=== PATIENT | female | born 1965 | race Caucasian/White ===

== ENCOUNTER → 2017-09-18 15:02 | Emergency (ER) | payer OTHER ==
[~2017-09-18 15:02] MED LIST: Dexamethasone IV* 4 MG/ML 1 ML (4 MG) IV SLOW PU ONE; Ketorolac INJ* 30 MG/ML 1 ML VIAL IV PUSH ONE; Lidocaine PATCH 5%* 1 PATCH TRANSDERM ONE; Morphine INJ* 2 MG/ML 1 ML CARPUJECT IV ONE; Morphine INJ* 2 MG/ML 1 ML SYRINGE (TWO MG - NEW SYRINGE VERSION) ONE; Morphine INJ* 4 MG/ML 1 ML CARPUJECT IV ONE; Ondansetron INJ* 2 MG/ML VIAL IV ONE; Orphenadrine Citrate IV* 30 MG/ML 2 ML VIAL IV ONE; oxyCODONE/Acetamin 5/325 MG* TAB PO ONE
--- NOTE | 2017-09-18 18:40 | ED ---
Back Pain - HPI Summary HPI Summary: 52F presents with back pain for three weeks. She states she was sitting in a chair when it started and that she got up and felt pain on left side of back. She states that sometimes it goes down her left leg and she gets tingling in her feet. She denies any loss of bowel or bladder or saddle anaesthesia. She denies any fever. She was seen here on 08/[address] that showed only arthritis. She denies any hematuria, urgency, frequency or dysuria. She did take medication for a uti at that time but did not have a uti. She denies any history of kidney stones. She denies any new injury. The pain is in the same location this entire month the intensity has just increased. She has been using flexeril, naproxen and Tylenol for the pain without relief. It is more comfortable if she stands. She is following up with her primary this week to start PT. - History of Current Complaint Chief Complaint: EDBackInjuryPain Stated Complaint: FLANK PAIN Time Seen by Provider: 09/18/17 17:44 Hx Last Menstrual Period: currently menstruating Pain Intensity: 8 - Allergies/Home Medications Allergies/Adverse Reactions: Allergies Allergy/AdvReac Type Severity Reaction Status Date / Time No Known Allergies Allergy Verified 09/18/17 15:04 PMH/Surg Hx/FS Hx/Imm Hx Endocrine/Hematology History: Denies: Hx Diabetes Cardiovascular History: Denies: Hx Hypertension Musculoskeletal History: Reports: Hx Back Problems - Surgical History Surgery Procedure, Year, and Place: cyst removed from right ovary in s - Immunization History Date of Tetanus Vaccine: unk Date of Influenza Vaccine: none Infectious Disease History: No Infectious Disease History: Denies: History Other Infectious Disease, Traveled Outside the [place] in Last 30 Days - Family History Known Family History: Negative: Diabetes - Social History Alcohol Use: Weekly Substance Use Type: Reports: None Smoking Status (MU): Never Smoked Tobacco Review of Systems Negative: Fever Negative: Chest Pain Negative: Shortness Of Breath Positive: Myalgia - back pain All Other Systems Reviewed And Are Negative: Yes Physical Exam Triage Information Reviewed: Yes Vital Signs On Initial Exam: Initial Vitals Temp Pulse Resp BP Pulse Ox 98.6 F 98 16 144/108 99 09/18/17 15:04 09/18/17 15:04 09/18/17 15:04 09/18/17 15:04 09/18/17 15:04 Vital Signs Reviewed: Yes Appearance: Positive: Pain Distress Skin: Positive: Warm, Dry Head/Face: Positive: Normal Head/Face Inspection Eyes: Positive: Normal, Conjunctiva Clear Respiratory/Lung Sounds: Positive: Clear to Auscultation, Breath Sounds Present Cardiovascular: Positive: Normal, RRR Abdomen Description: Positive: Nontender, Soft Bowel Sounds: Positive: Present Musculoskeletal: Positive: Limited @ - back, Other - tenderness on left side of back, pos SLR leg, good pulses Neurological: Positive: Reflexes Intact - patella, Normal Gait Psychiatric: Positive: Normal - Neema Coma Scale Coma Scale Total: 15 Diagnostics - Vital Signs Vital Signs Temp Pulse Resp BP Pulse Ox 09/18/17 18:16 20 09/18/17 16:02 24 09/18/17 15:04 98.6 F 98 16 144/108 99 - Laboratory Lab Statement: Any lab studies that have been ordered have been reviewed, and results considered in the medical decision making process. Re-Evaluation - Re-Evaluation First Eval Re-Evaluation Time: 19:13 Change: Improved Comment: feeling better, able to lay down in bed Back Pain Course/Dx - Course Course Of Treatment: 52F presents with back pain for three weeks. She states she was sitting in a chair when it started and that she got up and felt pain on left side of back. She states that sometimes it goes down her left leg and she gets tingling in her feet. She denies any loss of bowel or bladder or saddle anaesthesia. She denies any fever. She was seen here on 08/[address] that showed only arthritis. She denies any hematuria, urgency, frequency or dysuria. She did take medication for a uti at that time but did not have a uti. She denies any history of kidney stones. She denies any new injury. The pain is in the same location this entire month the intensity has just increased. She has been using flexeril, naproxen and Tylenol for the pain without relief. It is more comfortable if she stands. She is following up with her primary this week to start PT. on exam tenderness left lower back, pos SLR. able to ambulate. in course of ED was given steriod, toradol, norflex, and lidocaine patch. patient was in visible pain distress and required 6 mg total of morphine. due to this wrote a short script for narcoctic. gave lidocaine patch and steriod. told to follow up with primary. patient understand and agrees with plan. - Diagnoses Differential Diagnosis/HQI/PQRI: Positive: Fracture, Strain, Sprain Provider Diagnoses: Back pain Discharge - Discharge Plan Condition: Good Disposition: HOME Prescriptions: Lidocaine PATCH 5%* [Lidoderm 5% Patch*] 1 patch TRANSDERM DAILY #7 patch Methylprednisolone [Medrol Dosepak 4 MG*] 4 mg PO .SEE DENNIS INSTRUCTION #1 packet oxyCODONE/Acetamin 5/325 MG* [Percocet 5/325 TAB*] 1 tab PO Q6H PRN #12 tab MDD 4 PRN Reason: Pain Patient Education Materials: Back Pain (ED) Referrals: Ana Fuentes MD [Primary Care Provider] - Additional Instructions: Follow directions on package for Medrol pack Apply lidocaine patches to area for up to 12 hours in one 24 hour period Use ibuprofen or Tylenol for pain every 6 hours, use narcotic for break through pain ice/heat area, move as much as possible Follow up with primary within 5 days Return to ED if develop any new or worsening symptoms
[2017-09-18 19:47] VITALS: BP 111/72
[2017-09-18 20:01] LABS: Urine Bacteria Absent (Absent); Urine Bilirubin Negative (Negative); Urine Glucose Negative (Negative); Urine Nitrite Negative (Negative)
== END | disposition home or self-care (01) ==
LOC: ED 15:02
DX: M54.9 Dorsalgia, unspecified (principal)
CPT/HCPCS: 81003; 81015; 87086; 96374; 96375; 99283; A9270-GY; J1100; J1885; J2270; J2360; J2405

== ENCOUNTER 2017-09-23 04:37 | Emergency (ER) | payer OTHER ==
[2017-09-23] MEDS ORDERED: BUPIVICAINE INJ ONE (05:32)
[2017-09-23] MEDS ORDERED: EPI INJ ONE (05:32)
[2017-09-23] MEDS ORDERED: [UNRECOGNIZED DRUG - OTHER] INJ ONE (05:32)
[2017-09-23] MEDS ORDERED: Ketorolac INJ* 60 MG/2 ML VIAL IM ONE (05:32)
--- NOTE | 2017-09-23 05:40 | ED ---
Back Pain - HPI Summary HPI Summary: 52yo F with complaint of Left low back pain radiating down the outside of the L thigh for ~1month. She has been seen twice prior in the ER and by her primary several times. She had CT scans and other testing which showed just some arthritis. She is on medrol pack and percocet, but now hasnt had a bowel movement in 5 days time. She denies any fever, abdominal pain or rash. She feels a bit better with a flexed leg and her foot turned in. Occasionally will have some tingling in the toes of the L foot. She also just had a scan of the L hip which was negative. - History of Current Complaint Chief Complaint: EDBackInjuryPain Stated Complaint: BACK PAIN Time Seen by Provider: 09/23/17 05:13 Hx Obtained From: Patient Hx Last Menstrual Period: currently menstruating Pain Intensity: 6 Pain Scale Used: 0-10 Numeric Character: Sharp - Allergies/Home Medications Allergies/Adverse Reactions: Allergies Allergy/AdvReac Type Severity Reaction Status Date / Time No Known Allergies Allergy Verified 09/23/17 05:07 PMH/Surg Hx/FS Hx/Imm Hx Previously Healthy: Yes Endocrine/Hematology History: Denies: Hx Diabetes Cardiovascular History: Denies: Hx Hypertension Musculoskeletal History: Reports: Hx Back Problems - Surgical History Surgery Procedure, Year, and Place: cyst removed from right ovary in s - Immunization History Date of Tetanus Vaccine: unk Date of Influenza Vaccine: did not receive Infectious Disease History: No Infectious Disease History: Denies: History Other Infectious Disease, Traveled Outside the [place] in Last 30 Days - Family History Known Family History: Negative: Diabetes - Social History Occupation: Employed Full-time Lives: With Family Alcohol Use: Occasionally Substance Use Type: Reports: None Smoking Status (MU): Never Smoked Tobacco Review of Systems Negative: Fever Cardiovascular: Negative Respiratory: Negative Positive: Other - constipation. Negative: Abdominal Pain, Vomiting Genitourinary: Negative Negative: burning, frequency, flank pain, hematuria, incontinence Positive: Other - L low back and thigh pain Positive: Paresthesia. Negative: Weakness, Numbness All Other Systems Reviewed And Are Negative: Yes Physical Exam Triage Information Reviewed: Yes Vital Signs On Initial Exam: Initial Vitals Temp Pulse Resp BP Pulse Ox 36.2 C 106 18 118/86 97 09/23/17 04:39 09/23/17 04:39 09/23/17 04:39 09/23/17 04:39 09/23/17 04:39 Vital Signs Reviewed: Yes Appearance: Positive: Pain Distress, Thin Skin: Positive: Warm, Dry, Other - light erythematous papular rash both sides of back and buttocks Eyes: Positive: EOMI ENT: Positive: Normal ENT inspection Neck: Positive: Supple Respiratory/Lung Sounds: Positive: Clear to Auscultation, Breath Sounds Present Cardiovascular: Positive: RRR Abdomen Description: Positive: Nontender, No Organomegaly Bowel Sounds: Positive: Hypoactive Musculoskeletal: Positive: Other - TTP in the L low lumbar musculature just above the SI area and in the L piriformis/sciatic notch Neurological: Positive: Other - Nl saddle sensation. Slight decrease in light touch sensation lateral L thigh. Otherwise without focal deficit.. Negative: Ataxic Gait Psychiatric: Positive: Normal Procedures - Procedure Summary Procedure Summary: Trigger Point Injection: for pain Desc: Tender areas of the L low lumbar musculature and piriformis area were cleaned with chloroprep and injected with a total of 10cc of Bupivicaine 0.5% with epi thru a 25g needle. Her pain relief was excellent.She tolerated this well without complication. Diagnostics - Vital Signs Vital Signs Temp Pulse Resp BP Pulse Ox 09/23/17 04:39 36.2 C 106 18 118/86 97 - Laboratory Lab Statement: Any lab studies that have been ordered have been reviewed, and results considered in the medical decision making process. - CT Lumbar CT shows degenerative arthritis with foramenal narrowing seen most at L5-S1 bilaterally CT Interpretation: Positive (See Comments) CT Interpretation Completed By: Radiologist Re-Evaluation - Re-Evaluation First Eval Re-Evaluation Time: 07:40 Change: Improved - pt much better after trigger point injection and enema Back Pain Course/Dx - Course Course Of Treatment: Pt very uncomfortable but only minor neuro sx (light touch) . Trigger point injection and enema greatly relieved sx. D/C to primary/ chiropractic. May need MRI outpt and possible spine referral. - Diagnoses Differential Diagnosis/HQI/PQRI: Positive: Fracture, Herniated Disc, Osteoporosis, Strain, Sprain, Other. Negative: Cauda Equina Syndrome Provider Diagnoses: Acute constipation, Lumbar back pain with radiculopathy affecting left lower extremity Discharge - Discharge Plan Condition: Improved Disposition: HOME Prescriptions: Docusate Sodium [Colace] 100 mg PO BID #60 cap Patient Education Materials: Sciatica (ED) Referrals: Ana Fuentes MD [Primary Care Provider] - Additional Instructions: Go see your chiropractor today. Motion/massage will help. Take colace with any percocet. Use enemas as needed. Return with increased pain, numbness/weakness, difficulty with bowel or bladder worse or other concerns as discussed. See your Primary for referral for MRI and spine surgeon.
[2017-09-23] MEDS ORDERED: Sodium Phosphate ADULT ENEMA* 118 ml bottle PR ONE (06:28)
[2017-09-23] MEDS ORDERED: Bupivacaine 0.5% W/EPI SDV* 30 ML VIAL INJ ONE (07:00)
[2017-09-23 08:35] VITALS: BP 118/70
--- NOTE | 2017-09-23 10:17 | RAD ---
Indication: Low back pain and leg pain. CT of the lumbar spine was obtained in the axial plane. Sagittal and coronal reconstructed images were obtained. The vertebral bodies appear normal in height. Normal alignment is noted. No compression fracture is noted. At L5-S1, there is broad-based protrusion with facet arthropathy. No central or foraminal stenosis is noted. At L4-5, there is broad-based protrusion flattening the thecal sac. No central or foraminal stenosis is noted. At L3-4, broad-based protrusion is noted with far left lateral disc protrusion which may impinge upon the left exiting L3 nerve root. At L2-3, broad-based protrusion flattens the thecal sac. No central or foraminal stenosis is noted. At L1-2, no disc protrusion is identified. IMPRESSION: 1. At L4-5, there is minimal bilateral foraminal stenosis due to facet arthropathy. Broad-based protrusion flattens the thecal sac. 2. At L5-S1, broad-based protrusion flattens the thecal sac. Intervertebral foramen appear widely patent. There may be some impingement upon the descending nerve roots bilaterally. 3. At L3-4, there appears to be a far left lateral disc protrusion which narrows the left foramen and may impinge upon the exiting L3 nerve root. 4. Correlation with MRI of the lumbar spine is suggested for confirmation of these findings.
== END 2017-09-23 08:34 | disposition home or self-care (01) ==
LOC: ED 04:37
DX: K59.00 Constipation, unspecified (principal); M54.16 Radiculopathy, lumbar region
CPT/HCPCS: 72131; 96372; 99282; A9270-GY; J1885

== ENCOUNTER 2017-09-26 11:49 | Emergency (ER) | payer OTHER ==
[2017-09-26] MEDS ORDERED: HYDROmorphone INJ* 1 MG/ML CARPUJECT SYRINGE IV SLOW PU ONE (13:15)
[2017-09-26] MEDS ORDERED: Dexamethasone IV* 4 MG/ML 1 ML (4 MG) IV SLOW PU ONE (13:16)
[2017-09-26] MEDS ORDERED: Metoclopramide IV* 5 MG/ML 2 ML VIAL IV SLOW PU ONE (13:16)
--- OUTSIDE RECORDS SUMMARY | 2017-09-26 13:33 | XMS REPORT ---
:1965 External Reference #:[id number] Author Organization [facility] Address [address] [address] Phone [phone] Care Team Providers Name Role Phone Ana Fuentes MD Primary Care Physician Unavailable Payers Type Date Identification Numbers Payment Provider Subscriber Commercial Policy Number: [id number] [employer] Kita Goldberg PayID: [id number] [address] [place] [address] Problems Date Description Provider Status Onset: 04/29/2016 Skin lesion Carlos Zamudio NP Active Onset: 10/26/2016 Squamous cell carcinoma of skin Ana Fuentes M.D. Active Note: in situ lower eye lid Family History Date Family Member(s) Problem(s) Comments Onset: Father 87 DM, Coronary Artery (04/29/2016) Occlusion, Parkinson's, epilepsy Onset: Mother 86 Macular degeneration, (04/29/2016) memory loss, gallbladder Onset: First Son 17 asthma (04/29/2016) Onset: Second Son 13 asthma (04/29/2016) Onset: Third Son 11 healthy (04/29/2016) Onset: First Brother 60 healthy (04/29/2016) Onset: First Sister 63 healthy (04/29/2016) Onset: Second Sister 54 healthy (04/29/2016) Maternal Grandfather due to () - hx: stroke, DM, coronary arterial occlusion Social History Type Date Description Comments Marital Status Lives With Lives With Son 3 sons 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 Cigarette Use Never Smoked Cigarettes ETOH Use Consumes 4 glasses of wine per week Recreational Drug Use Denies Drug Use Smoking Patient has never smoked Daily Caffeine Consumes on average 4 cups of hot tea per day Exercise Type/Frequency Exercises sporadically bikes, goes to gym, walks but not on regular basis Currently Active Patient is currently sexually active Contraceptive Methods Current methods include vasectomy Allergies, Adverse Reactions, Alerts Date Description Reaction Status Severity Comments 04/29/2016 NKDA active Medications Medication Date Status Form Strength Qnty SIG Indications Ordering Provider Baclofen 09/20 Active Tablets 10mg 30tab take 1/2 M54.5 Aaron /2016 s tab every Elsi, 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 mouth [place], three M.D. times a day as needed with food Cyclobenzaprine HCL Active Tablets 10mg one by Unknown /0000 mouth three times a day as needed spasm Oxycodone-Acetamino Active Tablets 5-325mg 1-2 tabs Unknown phen /0000 by mouth every 4-6 hours as needed for pain Acetaminophen Extra Active Capsules 500mg 2 tab by Unknown Strength /0000 mouth every 6 hours as needed Methylprednisolone Active TBPK 4mg take as Unknown /0000 directed Miralax Active Powder [id number] 17 gm Unknown /0000 every day mixed w/ 8 oz water/juic e Slow Fe Hx takes Unknown /0000 during - menstrual 09/01 Immunizations CPT Code Status Date Vaccine Lot # [id number] Given 08/03/2016 Influenza Virus Vaccine, Quadrivalent, Split [id number] Virus, Im Use Vital Signs Date Vital Result Comment 09/20/2017 Height 68 inches 5'8" Weight 117.00 lb Heart Rate 72 /min BP Systolic Sitting 96 mmHg BP Diastolic Sitting 60 mmHg Body Temperature 97.7 F O2 % BldC Oximetry 97 % BMI (Body Mass Index) 17.8 kg/m2 09/02/2017 Height 68 inches 5'8" Weight 119.00 lb Heart Rate 80 /min BP Systolic Sitting 100 mmHg BP Diastolic Sitting 76 mmHg Body Temperature 98.1 F O2 % BldC Oximetry 98 % BMI (Body Mass Index) 18.1 kg/m2 08/03/2016 Weight 120.00 lb Heart Rate 62 /min BP Systolic Sitting 108 mmHg BP Diastolic Sitting 62 mmHg Body Temperature 97.5 F O2 % BldC Oximetry 98 % 07/02/2016 Weight 117.00 lb Heart Rate 60 /min BP Systolic Sitting 100 mmHg BP Diastolic Sitting 60 mmHg Respiratory Rate 16 /min Body Temperature 98.5 F 06/25/2016 Height 68 inches 5'8" Weight 118.00 lb Heart Rate 68 /min BP Systolic Sitting 97 mmHg BP Diastolic Sitting 58 mmHg Body Temperature 98.3 F O2 % BldC Oximetry 98 % BMI (Body Mass Index) 17.9 kg/m2 04/29/2016 Height 68 inches 5'8" Weight 114.50 lb Heart Rate 71 /min BP Systolic Sitting 116 mmHg BP Diastolic Sitting 60 mmHg Body Temperature 98.6 F O2 % BldC Oximetry 98 % BMI (Body Mass Index) 17.4 kg/m2 Results Test Date Test Result H/L Range Note Urinalysis Profile 09/18/2017 Urine Color Straw Urine Appearance Clear Urine Specific [place] 1.004 Low 1.010-1.030 Urine pH 7.0 5-9 Urine Urobilinogen Negative Negative Urine Ketones Negative Negative Urine Protein Negative Negative Urine Leukocytes 1+ Negative Urine Blood Negative Negative Urine Nitrite Negative Negative Urine Bilirubin Negative Negative Urine Glucose Negative Negative Urine White Blood Cell Trace(0-5/hpf) Absent Urine Red Blood Cell Trace(0-2/hpf) Absent Urine Bacteria Absent Absent Urine Squamous Epithelial Cell Present Absent Urine Culture And 09/18/2017 Urine Culture SEE RESULT BELOW 1 Sensitivities Urine Culture And 08/27/2017 Urine Culture SEE RESULT BELOW 2 Sensitivities Laboratory test finding 08/27/2017 Lipase 30 U/L 11.0-82.0 HCG < 0.60 mIU/mL 3 Comp Metabolic Panel 08/27/2017 Sodium 136 mmol/L 133-145 Potassium 3.9 mmol/L 3.5-5.0 Chloride 105 mmol/L 101-111 Co2 Carbon Dioxide 24 mmol/L 22-32 Anion Gap 7 mmol/L 2-11 Glucose 98 mg/dL 70-100 Blood Urea Nitrogen 18 mg/dL 6-24 Creatinine 0.81 mg/dL 0.51-0.95 BUN/Creatinine Ratio 22.2 High 8-20 Calcium 9.5 mg/dL 8.6-10.3 Total Protein 7.4 g/dL 6.4-8.9 Albumin 4.1 g/dL 3.2-5.2 Globulin 3.3 g/dL 2-4 Albumin/Globulin Ratio 1.2 1-3 Total Bilirubin 0.90 mg/dL 0.2-1.0 Alkaline Phosphatase 40 U/L 34-104 Alt 12 U/L 7-52 Ast 18 U/L 13-39 Egfr Non- 74.5 >60 Egfr 95.9 >60 4 Laboratory test finding 08/27/2017 Partial Thrombo Time 33.7 seconds 26.0 -36.3 PTT Inr/Protime 08/27/2017 Inr 0.85 Low 0.89-1.11 CBC Auto Diff 08/27/2017 White Blood Count 5.9 10^3/uL 3.5-10.8 Red Blood Count 4.16 10^6/uL 4.0-5.4 Hemoglobin 12.7 g/dL 12.0-16.0 Hematocrit 38 % 35-47 Mean Corpuscular Volume 91 fL 80-97 Mean Corpuscular Hemoglobin 31 pg 27-31 Mean Corpuscular HGB Conc 34 g/dL 31-36 Red Cell Distribution Width 13 % 10.5-15 Platelet Count 191 10^3/uL 150-450 Mean Platelet Volume 8 um3 7.4-10.4 Abs Neutrophils 2.4 10^3/uL 1.5-7.7 Abs Lymphocytes 2.6 10^3/uL 1.0-4.8 Abs Monocytes 0.6 10^3/uL 0-0.8 Abs Eosinophils 0.3 10^3/uL 0-0.6 Abs Basophils 0 10^3/uL 0-0.2 Abs Nucleated RBC 0.01 10^3/uL Granulocyte % 40.8 % 38-83 Lymphocyte % 44.0 % 25-47 Monocyte % 10.4 % High 1-9 Eosinophil % 4.3 % 0-6 Basophil % 0.5 % 0-2 Nucleated Red Blood Cells % 0.1 Urinalysis Profile 08/27/2017 Urine Color Yellow Urine Appearance Cloudy Urine Specific [place] 1.026 1.010-1.030 Urine pH 6.0 5-9 Urine Urobilinogen Negative Negative Urine Ketones Trace Negative Urine Protein Negative Negative Urine Leukocytes 2+ Negative Urine Blood Negative Negative Urine Nitrite Negative Negative Urine Bilirubin Negative Negative Urine Glucose Negative Negative Urine White Blood Cell 1+(6-10/hpf) Absent Urine Red Blood Cell 2+(6-10/hpf) Absent Urine Bacteria Absent Absent Urine Squamous Epithelial Cell Present Absent Laboratory test finding 06/30/2016 Lyme Disease Serology Negative Negative 5 CBC Auto Diff 06/30/2016 White Blood Count 6.7 10^3/uL 3.5-10.8 Red Blood Count 4.01 10^6/uL 4.0-5.4 Hemoglobin 12.2 g/dL 12.0-16.0 Hematocrit 37 % 35-47 Mean Corpuscular Volume 92 fL 80-97 Mean Corpuscular Hemoglobin 30 pg 27-31 Mean Corpuscular HGB Conc 33 g/dL 31-36 Red Cell Distribution Width 13 % 10.5-15 Platelet Count 187 10^3/uL 150-450 Mean Platelet Volume 9 um3 7.4-10.4 Abs Neutrophils 4.0 10^3/uL 1.5-7.7 Abs Lymphocytes 2.0 10^3/uL 1.0-4.8 Abs Monocytes 0.5 10^3/uL 0-0.8 Abs Eosinophils 0.2 10^3/uL 0-0.6 Abs Basophils 0 10^3/uL 0-0.2 Abs Nucleated RBC 0.04 10^3/uL Granulocyte % 59.9 % 38-83 Lymphocyte % 29.4 % 25-47 Monocyte % 7.0 % 1-9 Eosinophil % 3.1 % 0-6 Basophil % 0.6 % 0-2 Nucleated Red Blood Cells % 0.5 Laboratory test finding 06/30/2016 TSH (Thyroid Stim Horm) 0.62 mcIU/mL 0.34-5.60 CBC Auto Diff 06/25/2016 White Blood Count 5.4 10^3/uL 3.5-10.8 Red Blood Count 3.91 10^6/uL Low 4.0-5.4 Hemoglobin 12.0 g/dL 12.0-16.0 Hematocrit 36 % 35-47 Mean Corpuscular Volume 92 fL 80-97 Mean Corpuscular Hemoglobin 31 pg 27-31 Mean Corpuscular HGB Conc 33 g/dL 31-36 Red Cell Distribution Width 13 % 10.5-15 Platelet Count 187 10^3/uL 150-450 Mean Platelet Volume 9 um3 7.4-10.4 Abs Neutrophils 2.9 10^3/uL 1.5-7.7 Abs Lymphocytes 1.7 10^3/uL 1.0-4.8 Abs Monocytes 0.4 10^3/uL 0-0.8 Abs Eosinophils 0.2 10^3/uL 0-0.6 Abs Basophils 0 10^3/uL 0-0.2 Abs Nucleated RBC 0 10^3/uL Granulocyte % 54.6 % 38-83 Lymphocyte % 32.4 % 25-47 Monocyte % 8.4 % 1-9 Eosinophil % 4.2 % 0-6 Basophil % 0.4 % 0-2 Nucleated Red Blood Cells % 0 Laboratory test 06/25/2016 TSH (Thyroid Stim 0.64 mcIU/mL 0.34-5.60 finding Horm) Laboratory test 06/25/2016 Cytology SEE RESULT BELOW 6 finding HPV Rna Ww/Reflex Genotype Negative Negative 7 Lipid Profile (Trig/Chol/HDL) 06/25/2016 Triglycerides 77 mg/dL 8 Cholesterol 170 mg/dL 9 HDL Cholesterol 70.8 mg/dL 10 LDL Cholesterol 84 mg/dL 11 Laboratory test finding 06/25/2016 Glucose 85 mg/dL 70-100 12 1 SEE RESULT BELOW Name: KITA GOLDBERG Michael : [address]: Vel Boles MD Acct: [id number] Unit: [id number] AGE: 52 Location: ED Re09/18/17 SEX: F Status: REG ER SPEC: [id number] MAGDIEL: 09/18/17-[address]: Hilda BURNETT REQ: [id number] RECD: 09/18/17 STATUS: MARJAN BRANHAM DR: Ana Boles MD _ SOURCE: URINE [facility]: ORDERED: Urine Culture Procedure Result Reported Site Urine Culture Final 09/20/17- 34 ML No Growth (<1,000 CFU/mL) * ML - MAIN LAB ([facility]) . END OF REPORT * ML=Testing performed at Main Lab DEPARTMENT OF PATHOLOGY, [address] [place] [address] Tayo Fischer M.D. Director [facility] # [id number] 2 SEE RESULT BELOW Name: KITA GOLDBERG : [address]: Robert Bhatti MD Acct: [id number] Unit: [id number] AGE: 52 Location: ED Re08/27/17 SEX: F Status: DEP ER SPEC: [id number] MAGDIEL: 08/27/[address]: Robert Bhatti MD REQ: [id number] RECD: 08/27/17 STATUS: COMP CHELSEAHR DR: Ana Fuentes MD _ SOURCE: URINE SPDESC: ORDERED: Urine Culture Procedure Result Reported Site Urine Culture Final 08/28/17- 08 ML No Growth (<1,000 CFU/mL) * ML - MAIN LAB ([facility]) . END OF REPORT * ML=Testing performed at Main Lab DEPARTMENT OF PATHOLOGY, [address] [place] [address] Tayo Fischer M.D. Director [facility] # [id number] 3 <5.0 Negative 5.0 - 25.0 Indeterminate (Repeat testing recommended after 72 hours) >25.0 Positive Perimenopausal women can display HCG levels of up to 20 mIU/mL 4 Because ethnic data is not always readily available, this report includes an eGFR for both -Americans and non- Americans. The National Kidney Disease Education Program (NKDEP) does not endorse the use of the MDRD equation for patients that are not between the ages of 18 and 70, are , have extremes of body size, muscle mass, or nutritional status, or are non- or non-. According to the National Kidney Foundation, irrespective of diagnosis, the stage of the disease is based on the level of kidney function: Stage Description GFR(mL/min/1.73 m(2)) 1 Kidney damage with normal or decreased GFR 90 2 Kidney damage with mild decrease in GFR 60-89 3 Moderate decrease in GFR 30-59 4 Severe decrease in GFR 15-29 5 Kidney failure <15 (or dialysis) 5 Serologic response to B. burgdorferi infection is not detected, but cannot rule out early infection during which low or undetectable antibody levels to B. burgdorferi may be present. If clinically indicated, a new serum specimen should be submitted in 7-14 days. Test Performed by: [facility] [place] [address] Health Information Managers: Eber Verde II, M.D., Ph.D. 6 SEE RESULT BELOW Name: KITA GOLDBERG : [address]: Ana Fuentes MD Acct: [id number] Unit: [id number] AGE: 51 Location: [facility] Re06/25/16 SEX: F Status: REG REF SPEC: [id number] MAGDIEL: 06/25/16-[address]: Ana Fuentes MD REQ: [id number] RECD: 06/25/16 STATUS: SOUT _ ORDERED: IMAGE ANALYSIS, HPV/Thin Prep, HPV 16/18 GENE COMMENTS: [id number] FINAL DIAGNOSIS Negative for Intraepithelial lesion or Malignancy A. Ectocervical/Endocervical Specimen Adequacy: Satisfactory of evaluation Transformation zone component identified Patient Information: HPV: High risk HPV RNA testing regardless of pap results. HPV 16/18 Genotype Reflex Actual Specimen Date: 06/25/16 Last Menstrual Date: 06/15/16 Date Time Test Result Flag (u) Normal Range 06/25/16 1205 HPV RNA RFLX GE Negative Negative The high-risk HPV types detected by the assay include: 16, 18, 31, 33, 35, 39, 45, 51, 52, 56, 58, 59, 66, and 68. Signed (signature on file) SHALOM Rodriguez (ASCP) 06/26 1420 This Pap test was evaluated with the assistance of the Tab SolutionsPrep Test Imaging System. Due to cytologic findings at the advanced manufacturing vice president microscope, comprehensive manual rescreening by a Research Executive may be required. The Pap Smear is a screening test designed to aid in the detection of premalignant and malignant conditions of the uterine cervix. It is not a diagnostic procedure and should not be used as the sole means of detecting cervical cancer. Both false- positive and false- negative reports do occur. Depending on your risk status, a Pap smear should be obtained and evaluated every 1-3 years. END OF REPORT * ML=Testing performed at Main Lab DEPARTMENT OF PATHOLOGY, [address] [place] [address] Tayo Fischer M.D. Director [facility] # [id number] 7 The high-risk HPV types detected by the assay include: 16, 18, 31, 33, 35, 39, 45, 51, 52, 56, 58, 59, 66, and 68. 8 Desirable <150 Borderline high 150-199 High 200-499 Very High >500 9 Desirable <200 Borderline high 200-239 High >239 10 Low <40 Desirable: 40-60 High: >60 11 Desirable: <100 mg/dL Near Optimal: 100-129 mg/dL Borderline High: 130-159 mg/dL High: 160-189 mg/dL Very High: >189 mg/dL 12 FASTING 12 HOUR Procedures Date CPT Code Description Status Comment 07/13/2016 Mammogram Completed 10/25/2008 Colonoscopy Completed Per pt has had colonoscopy prior and is due, she will sign NO for records done at the [facility] ( reportedly normal ) done for abd pain Encounters Type Date Location Provider CPT E/M Dx Office Visit 08/03/2016 7:50a [facility] Internal Medicine Ana Fuentes M.D. 92981 Z23 - Suzette M25.551 Office Visit 06/25/2016 11:10a [facility] Internal Medicine Ana Fuentes, [address]3093 Z00.00 - Suzette Stanton Z12.4 Z12.31 N92.0 Office Visit 04/29/2016 2:00p [facility] [place] [address] L98.9 Plan of Care Future Appointment(s):09/22/2017 9:10 am - Ana Fuentes M.D. at [facility] Internal Medicine - Uohgsdfkg49/27/2017 - Aaron Calzada NPM54.5 Low back painNew Medication:Baclofen 10 mgNew Therapy:Physical TherapyComments:I have changed the cyclobenzaprine to the Baclofen. Complete the medrol dose pack and then you can resume the diclofenac.Use the pain medication as needed.If causing constipation you can use a dulcolaxsuppository. You can start using Colace daily which is a stool softener. I have referred you to physical therapy.Follow up:prn
--- OUTSIDE RECORDS SUMMARY | 2017-09-26 13:34 | XMS REPORT ---
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 Smoked Cigarettes ETOH [...] Form Strength Qnty SIG Indications Ordering Provider Diclofenac Sodium / Active Tablets 50mg take [address] tablet by mouth three times a day as needed with food Cyclobenzaprine / Active Tablets 10mg one by Unknown HCL 0000 mouth three times a day as needed spasm Slow Fe / Hx takes Unknown 0000 - during 2016 sycle Immunizations CPT Code Status Date Vaccine Lot # [id number] Given 08/03/2016 Influenza Virus Vaccine, Quadrivalent, Split [id number] Virus, Im Use Vital Signs Date Vital Result Comment 09/02/2017 Height 68 inches 5'8" Weight 119.00 [...] Test Result H/L Range Note Urinalysis Profile 08/27/2017 Urine Color Yellow Urine Appearance Cloudy Urine Specific [place] 1.026 1.010-1.030 Urine pH 6.0 5-9 Urine Urobilinogen Negative Negative Urine Ketones Trace Negative Urine Protein Negative Negative Urine Leukocytes 2+ Negative Urine Blood Negative Negative Urine Nitrite Negative Negative Urine Bilirubin Negative Negative Urine Glucose Negative Negative Urine White Blood Cell 1+(6-10/hpf) Absent Urine Red Blood Cell 2+(6-10/hpf) Absent Urine Bacteria Absent Absent Urine Squamous Epithelial Cell Present Absent CBC Auto Diff 08/27/2017 White Blood Count [...] 0-2 Nucleated Red Blood Cells % 0.1 Inr/Protime 08/27/2017 Inr 0.85 Low 0.89-1.11 Laboratory test finding 08/27/2017 Partial Thrombo Time 33.7 seconds 26.0 -36.3 PTT Comp Metabolic Panel 08/27/2017 Sodium 136 mmol/L [...] Egfr Non- 74.5 >60 Egfr 95.9 >60 1 Laboratory test finding 08/27/2017 Lipase 30 U/L 11.0-82.0 HCG < 0.60 mIU/mL 2 Urine Culture And 08/27/2017 Urine Culture SEE RESULT BELOW 3 Sensitivities Laboratory test finding 06/30/2016 TSH (Thyroid Stim 0.62 mcIU/mL 0.34- 5.60 Horm) CBC Auto Diff 06/30/2016 White Blood Count [...] Cells % 0.5 Laboratory test finding 06/30/2016 Lyme Disease Serology Negative Negative 4 CBC Auto Diff 06/25/2016 White Blood Count [...] Laboratory test 06/25/2016 Cytology SEE RESULT BELOW 5 finding HPV Rna Ww/Reflex Genotype Negative Negative 6 Lipid Profile (Trig/Chol/HDL) 06/25/2016 Triglycerides 77 mg/dL 7 Cholesterol 170 mg/dL 8 HDL Cholesterol 70.8 mg/dL 9 LDL Cholesterol 84 mg/dL 10 Laboratory test finding 06/25/2016 Glucose 85 mg/dL 70-100 11 1 Because ethnic data is not always readily [...] 15-29 5 Kidney failure <15 (or dialysis) 2 <5.0 Negative 5.0 - 25.0 Indeterminate (Repeat testing recommended after 72 hours) >25.0 Positive Perimenopausal women can display HCG levels of up to 20 mIU/mL 3 SEE RESULT BELOW Name: HARRIS GOLDBERG : [address]: Robert Bhatti MD Acct: [id number] Unit: [id number] AGE: 52 Location: ED Re08/27/17 SEX: F Status: DEP ER SPEC: [id number] MAGDIEL: 08/27/[address] [facility] [address]: Robert Bhatti MD REQ: [id number] RECD: 08/27/17 STATUS: MARJAN BRANHAM DR: Ana Fuentes MD _ SOURCE: URINE SPDESC: ORDERED: Urine Culture Procedure Result Reported Site Urine Culture Final 08/28/17- 0806 ML No Growth (<1,000 CFU/mL) * ML - [facility] ([facility]) . END OF REPORT * ML=Testing performed at [facility] DEPARTMENT OF PATHOLOGY, [address] [place] [address] Tayo Fischer M.D. Director [facility] # [id number] 4 Serologic response to B. burgdorferi infection is not detected, but cannot rule out early infection during which low or undetectable antibody levels to B. burgdorferi may be present. If clinically indicated, a new serum specimen should be submitted in 7-14 days. Test Performed by: [place] [address] Industrial Diamond Polisher: Eber Verde II, M.D., Ph.D. 5 SEE RESULT BELOW Name: HARRIS GOLDBERG : [address]: Ana Fuentes MD Acct: [id number] Unit: [id number] AGE: 51 Location: [facility] Re06/25/16 SEX: F Status: REG REF SPEC: [id number] MAGDIEL: 06/25/16-[address]: Ana Fuentes MD REQ: [id number] RECD: 06/25/16 STATUS: SOUT _ ORDERED: IMAGE ANALYSIS, HPV/Thin Prep, HPV 16/18 GENE COMMENTS: [id number] FINAL DIAGNOSIS Negative for Intraepithelial lesion or [...] was evaluated with the assistance of the unrivalPrep Test Imaging System. Due to cytologic findings at the supervisor mail carriers microscope, comprehensive manual rescreening by a Land Management Supervisor may be required. The Pap Smear is [...] performed at Main Lab DEPARTMENT OF PATHOLOGY, [address] [place] [address] Tayo Fischer M.D. Director [facility] # [id number] 6 The high-risk HPV types detected by the assay include: 16, 18, 31, 33, 35, 39, 45, 51, 52, 56, 58, 59, 66, and 68. 7 Desirable <150 Borderline high 150-199 High 200-499 Very High >500 8 Desirable <200 Borderline high 200-239 High >239 9 Low <40 Desirable: 40-60 High: >60 10 Desirable: <100 mg/dL Near Optimal: 100-129 mg/dL Borderline High: 130-159 mg/dL High: 160-189 mg/dL Very High: >189 mg/dL 11 FASTING 12 HOUR Procedures Date CPT Code Description Status Comment 07/13/2016 Mammogram Completed 10/25/2008 Colonoscopy Completed Per pt has had colonoscopy prior and is due, she will sign NO for records done at the [facility] ( reportedly normal ) done for abd pain Encounters Type Date Location Provider CPT E/M Dx Office Visit 08/03/2016 7:50a [facility] Internal Medicine Ana Fuentes M.D. 75452 Z23 - Suzette M25.551 Office Visit 06/25/2016 11:10a [facility] Internal Medicine Ana Fuentes, 45249 Z00.00 - Suzette Stanton Z12.4 Z12.31 N92.0 Office Visit 04/29/2016 2:00p [facility] [place] [address] L98.9 Plan of Care Future Appointment(s):09/22/2017 9:10 am - Ana Fuentes M.D. at [facility] Internal Medicine - Zdyaoyaxr19/09/2017 - Isidro Delvalle M.D.M54.5 Low back painComments:Improving L lower back pain sx with no traumatic event. No neuromuscular deficits noted. Continue rest, local warmth, analgesics as needed. Pt started with a chiropractor and so far has found it helpful.Follow up:prn if sx persist/worsen
--- NOTE | 2017-09-26 14:50 | RAD ---
INDICATION: Back pain COMPARISON: CT lumbar spine dated September 23, 2017 that revealed multilevel degenerative change and loss of intervertebral disc height. TECHNIQUE: Coronal glass mould cleaner, sagittal T1, inversion recovery, T2, and axial T1, T2 images were acquired. The patient moved in between imaging acquired in the sagittal and axial plane and therefore the images are not localized together which limits evaluation. FINDINGS: The spinal cord terminates at the L1 level. There are no intrinsic abnormalities of the visualized cord. The lower thoracic and lumbar vertebrae are normally aligned. Vertebral body height is adequately maintained and bony signal is within normal limits. On the sagittal view imaging there is loss of fluid signal at L4/L5 and L5/S1. Modic type II changes are noted at the anterior L5/S1 articulating endplates. Incidentally noted are fluid density subcentimeter structures at the level of S2 consistent with benign Tarlov cysts. Axial view images: Less otherwise specified below there is no significant central canal stenosis or neural foraminal stenosis. T12-L1:There is no significant central canal or neural foraminal stenoses. L1-L2: There is no significant central canal or neural foraminal stenoses. L2-L3: There is no significant central canal or neural foraminal stenoses. L3-L4: Broad-based disc protrusion combining with facet arthropathy and thickening of ligamentum flavum combined to cause mild bilateral neural foraminal stenosis. L4-L5: Broad-based disc protrusion extending to the left subarticular space combines with facet arthropathy and mild thickening of ligamentum flavum to cause mild bilateral neural foraminal stenosis. L5-S1: There is broad-based disc protrusion extending into the left neural foramen causing mild left neural foraminal stenosis. IMPRESSION: Degenerative changes of the lower lumbar spine as described above.
--- NOTE | 2017-09-26 15:16 | ED ---
Delvis Peña Abhishek, scribed for Piyush Lemus MD on 09/26/17 at 1323 . Lower Extremity - HPI Summary HPI Summary: This patient is a 52 year old F presenting to [facility] in a wheelchair with a chief complaint of hip pain since 5 weeks ago and worse since 3 days ago. Pt described as back lower hip pain. Pain radiates around the side of the hip and leg, as well as into the knee characterized as pinching. The patient rates the pain 10/10 in severity. Symptoms aggravated by sitting down and working. Symptoms alleviated by enema but not by narcotics. Patient reports fatigued, decreased sleep, weakness and not ambulatory due to intense pain. Pt has had two general visits with PCP and had multiple scans around area of pain. Pt reports going to a chiropractor and has a pt appointment on Wednesday but has not seen orthopedists. Pt takes the following medication: Oxycodone (2 pills twice at night for sleep, 1 pill twice a day), and baclofen for sleeping. - History of Current Complaint Chief Complaint: EDHipPelvisInjury Stated Complaint: BACK/HIP PAIN Time Seen by Provider: 09/26/17 12:49 Hx Obtained From: Patient Hx Last Menstrual Period: currently menstruating Onset/Duration: Still Present Severity Initially: Severe Severity Currently: Severe Pain Intensity: 10 Pain Scale Used: 0-10 Numeric Timing: Constant, Lasting Weeks - since 5 weeks ago, worse since 3 days ago Location: Radiates To - the side of the hip and leg, as well as into the knee characterized as pinching. Aggravating Factor(s): Nothing Alleviating Factor(s): Other - Enema - Allergies/Home Medications Allergies/Adverse Reactions: Allergies Allergy/AdvReac Type Severity Reaction Status Date / Time No Known Allergies Allergy Verified 09/23/17 05:07 PMH/Surg Hx/FS Hx/Imm Hx Endocrine/Hematology History: Denies: Hx Diabetes Cardiovascular History: Denies: Hx Hypertension Musculoskeletal History: Reports: Hx Back Problems - Surgical History Surgery Procedure, Year, and Place: cyst removed from right ovary in s - Immunization History Date of Tetanus Vaccine: unk Date of Influenza Vaccine: did not receive Infectious Disease History: No Infectious Disease History: Denies: History Other Infectious Disease, Traveled Outside the [place] in Last 30 Days - Family History Known Family History: Positive: Cardiac Disease, Hypertension, Diabetes - Social History Alcohol Use: Occasionally Substance Use Type: Reports: None Smoking Status (MU): Never Smoked Tobacco Review of Systems Positive: Fatigue Eyes: Negative ENT: Negative Cardiovascular: Negative Respiratory: Negative Gastrointestinal: Negative Genitourinary: Negative Positive: Other - Hip pain and non-ambulatory due to pain Neurological: Other - decreased sleep; Positive: Weakness Psychological: Normal All Other Systems Reviewed And Are Negative: Yes Physical Exam - Summary Physical Exam Summary: ,n, VITAL SIGNS: Reviewed. GENERAL: ~Patient is a well-developed and nourished (FEMALE) who is lying comfortable in the stretcher. Patient is not in any acute respiratory distress. HEAD AND FACE: No signs of trauma. No ecchymosis, hematomas or skull depressions. No sinus tenderness. EYES: PERRLA, EOMI x 2, No injected conjunctiva, no nystagmus. EARS: Hearing grossly intact. Ear canals and tympanic membranes are within normal limits. MOUTH: Oropharynx within normal limits. NECK: Supple, trachea is midline, no adenopathy, no JVD, no carotid bruit, no c- spine tenderness, neck with full ROM. CHEST: Symmetric, no tenderness at palpation LUNGS: Clear to auscultation bilaterally. No wheezing or crackles. CVS: Regular rate and rhythm, S1 and S2 present, no murmurs or gallops appreciated. ABDOMEN: Soft, non-tender. No signs of distention. No rebound no guarding, and no masses palpated. Bowel sounds are normal. Musculoskeletal Tenderness over the left buttock area EXTREMITIES: there is decreased left lower extremity weakness because of pain NEURO: Alert and oriented x 3. No acute neurological deficits. Speech is normal and follows commands. sensory exam Is intact Rectal Exam: normal tone SKIN: Dry and warm Triage Information Reviewed: Yes Vital Signs On Initial Exam: Initial Vitals Temp Pulse Resp BP Pulse Ox 97.1 F 96 17 104/72 100 09/26/17 12:00 09/26/17 12:00 09/26/17 12:00 09/26/17 12:00 09/26/17 12:00 Vital Signs Reviewed: Yes Diagnostics - Vital Signs Vital Signs Temp Pulse Resp BP Pulse Ox 09/26/17 12:00 97.1 F 96 17 104/72 100 - Laboratory Lab Statement: Any lab studies that have been ordered have been reviewed, and results considered in the medical decision making process. - Radiology MRI Lumbar Spine Radiology Interpretation Completed By: Radiologist - MRI reveals Degenerative changes of the lower lumbar spine as described in the MRI report on 09/26/17 Lower Extremity Course/Dx - Course Course Of Treatment: This patient is a 52 year old F presenting to [facility] in a wheelchair with a chief complaint of hip pain since 5 weeks ago and worse since 3 days ago. Pt described as back lower hip pain. Pain radiates around the side of the hip and leg, as well as into the knee characterized as pinching. The patient rates the pain 10/10 in severity. Symptoms aggravated by sitting down and working. Symptoms alleviated by enema but not by narcotics. Patient reports fatigued, decreased sleep, weakness and not ambulatory due to intense pain. MRI reveals Degenerative changes of the lower lumbar spine as described in the MRI report on 09/26/17. Dx will be lumbar radiculopathy. Pt is recommended to follow up with physical therapy and PCP. Pt will be discharged home. - Diagnoses Provider Diagnoses: Lumbar radiculopathy Discharge - Discharge Plan Condition: Stable Disposition: HOME Prescriptions: oxyCODONE/Acetamin 5/325 MG* [Percocet 5/325 TAB*] 1 tab PO Q6H PRN #10 tab MDD 4 PRN Reason: Pain predniSONE TAB* [Deltasone TAB*] 40 mg PO DAILY #10 tab Patient Education Materials: Lumbar Radiculopathy (ED) Referrals: Ana Fuentes MD [Primary Care Provider] - (Pt is recommended to follow up with PCP and physical therapy. Return to the ED in case of worsening symptoms.) The documentation as recorded by the Delvis conner Abhishek accurately reflects the service I personally performed and the decisions made by , Piyush Lemus MD.
[2017-09-26 15:53] VITALS: BP 90/47
== END 2017-09-26 16:02 | disposition home or self-care (01) ==
LOC: ED 11:49
DX: M54.16 Radiculopathy, lumbar region (principal); R53.83 Other fatigue; R53.1 Weakness
CPT/HCPCS: 72148; 96374; 96375; 99282; J1100; J1170; J2765